=== PATIENT | female | born 1970 | race Caucasian/White ===

== ENCOUNTER 2020-05-25 15:15 | Inpatient (IN) | payer MEDICAID, SELFPAY ==
[~2020-05-25] VITALS: Ht 154.9 cm; Wt 49.0 kg
[2020-05-25 15:30] VITALS: BP 136/89
[2020-05-25] MEDS ORDERED: ONDANSETRON 4 MG/2 ML VIAL IVP ONE (15:35)
[2020-05-25] MEDS ORDERED: MORPHINE SULFATE 4 MG/ML SYR IVP ONE (15:35)
[2020-05-25 15:57] LABS: BASOPHILS % (AUTO) 0.3 % (0.0-2.0); EOSINOPHILS % (AUTO) 0.2 % (0.0-4.0); HEMATOCRIT 42.2 % (36-48); HEMOGLOBIN 14.2 g/dL (12.0-16.0); LYMPHOCYTES # (AUTO) 0.6 K/uL (2.5-16.5); LYMPHOCYTES % (AUTO) 8.8 % (20.5-51.1); MEAN CORPUSCULAR HEMOGLOBIN 29 pg (27-31); MEAN CORPUSCULAR HGB CONC 34 g/dL (33-37); MEAN CORPUSCULAR VOLUME 85.8 fL (80-94); MONOCYTES # (AUTO) 0.5 K/uL (0.8-1.0); MONOCYTES % (AUTO) 7.7 % (1.7-9.3); NEUTROPHILS # (AUTO) 5.4 K/uL (1.8-7.7); PLATELET COUNT (AUTO) 228 K/uL (140-450); RED BLOOD CELL COUNT(AUTO) 4.91 MIL/uL (4.20-5.40); WHITE BLOOD COUNT (AUTO) 6.5 K/uL (4.8-10.8)
--- NOTE | 2020-05-25 16:28 | NUR ---
50YO F BIB FAMILY C/O LOWER ABD PAIN X2 WEEKS ACCOMPANIED WITH N/V, WEIGHT LOSS OF 8 LBS. DENIES DIARRHEA, FEVER. IN ED, VSS. STATES PAIN OF 9/10. WITH TENDERNESS TO LOWER QUADRANT. NORMOACTIVE BOWEL SOUNDS. PT CHANGED TO GOWN, POSITIONED IN BED WITH 2 SIDERAILS UP. ERMD MADE AWARE OF PT STATUS. HX DENIES NKA
[2020-05-25 16:30] LABS: ALBUMIN 3.7 g/dL (3.4-5.0); ANION GAP 14.9 (8-16); CARBON DIOXIDE 22.5 mmol/L (21-32); POTASSIUM 4.4 mmol/L (3.5-5.1); TOTAL BILIRUBIN 0.8 mg/dL (0.0-1.0)
[2020-05-25] MEDS ORDERED: PIPERACILLIN/TAZOBACTAM 3.375 GM in DEXTROSE 5% 50 ML IV ONE (17:05)
[2020-05-25] MEDS ORDERED: metroNIDAZOLE 500 MG/NS PREMIX 100 ML IV ONE (17:05)
[2020-05-25] MEDS ORDERED: PIPERACILLIN/TAZOBACTAM 3.375 GM VIAL IV ONE (17:19)
--- NOTE | 2020-05-25 17:48 | NUR ---
natalie swab done. walked to lab.
[2020-05-25 18:08] LABS: APPEARANCE,URINE CLEAR (CLEAR); BILIRUBIN,URINE NEGATIVE (NEGATIVE); BLOOD, URINE TRACE-I (NEGATIVE); COLOR,URINE YELLOW (YELLOW); LEUKOCYTE ESTERASE ,URINE NEGATIVE (NEGATIVE); NITRITE, URINE NEGATIVE (NEGATIVE); PH,URINE 5.5 (5.0-9.0); UGLUCOSE NEGATIVE (NEGATIVE)
[2020-05-25 18:21] LABS: WBC,URINE 0-5 /HPF (0-5)
--- NOTE | 2020-05-25 19:17 | NUR ---
GAVE REPORT TO LAUREN SERRANO. ALL CARE TRANSFERRED AT THIS TIME.
[2020-05-25] MEDS: DEXTROSE 5% 1,000 ML IV SCH (19:30)
--- NOTE | 2020-05-25 20:18 | NUR ---
Patient will be admitted to care of DR ROBERTS. Admited to [facility]. Will go to room 115. Belongings list completed. Report to LAUREN MIKE.
--- NOTE | 2020-05-25 20:30 | NUR ---
ADMITTED 50 Y/O FEMALE, FROM HOME, AAOX4, ON ROOM AIR, NO SOB, AMBULATORY, SKIN INTACT, V/S TAKEN, ORIENTED TO ROOM, SAFETY MEASURES IN PLACE, ISO PRECAUTION OBSERVED, CALL LIGHT WITHIN REACH.
[2020-05-25] MEDS ORDERED: guaiFENesin DM 200/20 MG-10 ML 10 ML UDC PO PRN (20:45)
[2020-05-25] MEDS ORDERED: ZOLPIDEM 5 MG TAB PO PRN (20:45)
[2020-05-25] MEDS ORDERED: POTASSIUM CHLORIDE 40 MEQ, LIDOCAINE MPF 1% 25 MG in NACL 0.9% 250 ML IV PRN (20:45)
[2020-05-25] MEDS ORDERED: DOCUSATE SODIUM 100 MG GELCAP PO PRN (20:45)
[2020-05-25] MEDS ORDERED: ONDANSETRON 4 MG/2 ML VIAL IM/IVP PRN (20:45)
[2020-05-25] MEDS ORDERED: KETOROLAC 30 MG/ML VIAL IM SCH (20:50)
[2020-05-25] MEDS ORDERED: methylPREDNISolone SS 125 MG/2 ML VIAL IVP SCH (20:55)
[2020-05-25 21:11] LABS: PROTHROMBIN TIME 10.4 secs (10.8-13.4)
[2020-05-25 21:27] LABS: CHOL/HDL RATIO 2.1 (1-4.5); FREE T4 (FREE THYROXINE) 1.28 ng/dL (0.76-1.46); MAGNESIUM 2.2 mg/dL (1.8-2.4); PHOSPHORUS 3.3 mg/dL (2.5-4.9); THYROID STIMULATING HORMONE 2.55 uIU/mL (0.34-3.74)
[2020-05-25] MEDS: MORPHINE SULFATE 2 MG/ML SYR IVP PRN (21:30)
[2020-05-25 21:48] LABS: BARBITURATE, URINE NEGATIVE ng/ml (NEG <=200); BENZODIAZEPINE, URINE NEGATIVE ng/mL (NEG <=200); CANNABINOID, URINE NEGATIVE ng/mL (NEG <=50); COCAINE, URINE NEGATIVE ng/mL (NEG <=300); OPIATE, URINE NEGATIVE ng/mL (NEG <=2000); PHENCYCLIDINE SCREEN,URINE NEGATIVE ng/mL (NEG <=25)
--- NOTE | 2020-05-26 | NUR ---
ASLEEP, RESPIRATION EVEN AND UNLABORED, NO SOB, O2 SAT 97%, CALL LIGHT WITHIN REACH.
--- NOTE | 2020-05-26 02:00 | NUR ---
PT ASLEEP, RESPIRATION EVEN AND UNLABORED, CALL LIGHT WITHIN REACH.
[2020-05-26 04:00] VITALS: BP 112/76
[2020-05-26] MEDS ORDERED: PIPERACILLIN/TAZOBACTAM 3.375 GM VIAL IV ONE (04:26)
[2020-05-26] MEDS: PIPERACILLIN/TAZOBACTAM 3.375 GM in DEXTROSE 5% 50 ML IV SCH ×3 (04:38→20:56)
--- NOTE | 2020-05-26 04:40 | NUR ---
ZOSYN IV GIVEN ORDERED, NO A/R NOTED, PT WALK TO THE RESTROOM, SBA, STABLE, CALL LIGHT WITHIN REACH.
[2020-05-26] MEDS: DEXTROSE 5% 1,000 ML IV SCH ×2 (06:25→18:56)
[2020-05-26 06:46] LABS: BASOPHILS % (AUTO) 0.5 % (0.0-2.0); EOSINOPHILS # (AUTO) 0.1 K/uL (0-0.4); EOSINOPHILS % (AUTO) 0.9 % (0.0-4.0); HEMATOCRIT 39.5 % (36-48); HEMOGLOBIN 13.3 g/dL (12.0-16.0); LYMPHOCYTES # (AUTO) 0.6 K/uL (2.5-16.5); LYMPHOCYTES % (AUTO) 10.4 % (20.5-51.1); MEAN CORPUSCULAR HEMOGLOBIN 29 pg (27-31); MEAN CORPUSCULAR HGB CONC 34 g/dL (33-37); MEAN CORPUSCULAR VOLUME 86.4 fL (80-94); MONOCYTES # (AUTO) 0.6 K/uL (0.8-1.0); MONOCYTES % (AUTO) 10.5 % (1.7-9.3); NEUTROPHILS # (AUTO) 4.8 K/uL (1.8-7.7); NEUTROPHILS % (AUTO) 77.7 % (42.2-75.2); PLATELET COUNT (AUTO) 223 K/uL (140-450); RED BLOOD CELL COUNT(AUTO) 4.57 MIL/uL (4.20-5.40); RED CELL DISTRIBUTION WIDTH 13.2 % (11.6-13.7); WHITE BLOOD COUNT (AUTO) 6.1 K/uL (4.8-10.8)
--- NOTE | 2020-05-26 06:46 | NUR ---
CHECKED PT, NO DISTRESS, NO SOB, CALL LIGHT WITHIN REACH.
--- NOTE | 2020-05-26 07:30 | NUR ---
PT STABLE, NO DISTRESS, NO ACUTE CHANGES THE WHOLE SHIFT, ENDORSED TO AM SHIFT RN FOR CONTINUITY OF CARE.
[2020-05-26] MEDS: MORPHINE SULFATE 2 MG/ML SYR IVP PRN ×2 (07:39→15:46)
[2020-05-26 08:01] LABS: ANION GAP 12.8 (8-16); CARBON DIOXIDE 24.2 mmol/L (21-32); CREATININE 0.9 mg/dL (0.6-1.3)
[2020-05-26] MEDS: methylPREDNISolone SS 40 MG/ML VIAL IVP SCH ×2 (08:11→21:08)
[2020-05-26] MEDS: PANTOPRAZOLE 40 MG INJ VIAL IVP SCH (08:11)
--- NOTE | 2020-05-26 08:57 | NUR ---
Patient awake, alert and oriented. Currently on room air, complains of excruciating abdominal pain. Describes pain as lower abdomen and radiates with movement to all quadrants. Given Prn Morphine and to continue to observe patient. Currently NPO and awaiting Physician for possible surgical procedure.
[2020-05-26 09:01] VITALS: BP 120/80
--- NOTE | 2020-05-26 09:07 | NUR ---
PATIENT HAS BEEN SCREENED AND CATEGORIZED HIGH NUTRITION RISK. PATIENT WILL BE SEEN WITHIN 1-2 DAYS OF ADMISSION. 05/26/20-05/27/[address]
[2020-05-26] MEDS ORDERED: bisacodyL 10 MG SUPP RC PRN (09:35)
--- NOTE | 2020-05-26 11:53 | NUR ---
SOCIAL WORK NOTE: MARIA ELENA WAS UNABLE TO MEET PATIENT AT BEDSIDE. MARIA ELENA CONTACTED PATIENT'S TO COMPLETE ASSESSMENT, GABY JACINTO [phone]. MARIA ELENA LEFT . MARIA ELENA WILL FOLLOW UP. Addendum: 05/29/20 at 1114 by Chiov Salmon SS MARIA ELENA CONTACTED GABY JACINTO USING REAMER HAND CLAU [id number]. MARIA ELENA LEFT TO COMPLETE ASSESSMENT.
[2020-05-26] MEDS ORDERED: MAGNESIUM CITRATE 300 ML BTL PO SCH (14:30)
--- NOTE | 2020-05-26 15:50 | NUR ---
Administered Magnesium Citrate and patient unable to tolerate as she cried out having severe abdominal pain. Patient given a dose of Morphine and will continue to observe.
[2020-05-26 16:00] VITALS: BP 129/84
--- NOTE | 2020-05-26 16:25 | NUR ---
05/26/20 RD INITIAL ASSESSMENT COMPLETED PLEASE REFER TO NUTRITION ASSESSMENT UNDER CARE ACTIVITY FOR ESTIMATED NUTRITIONAL NEEDS. 1. CONTINUE FULL LIQUID DIET PER GI 2. CONSIDER ENSURE CLEAR TID 3. GRADUALLY ADVANCE DIET TOLERATED 4. RD TO FOLLOW-UP 2-3 DAYS, HIGH RISK MOJGAN DUNLAP, RD
[2020-05-26] MEDS: ERYTHROMYCIN 250 MG TABEC PO SCH (18:55)
[2020-05-26] MEDS: SENNA 8.6 MG TAB PO SCH (18:56)
--- NOTE | 2020-05-26 19:00 | NUR ---
RECEIVED PATIENT FROM AM SHIFT NURSE FOR CONTINUITY OF CARE. AAOX4. RESPIRATIONS EVEN, UNLABORED. NO S/S RESPIRATORY DISTRESS. SKIN WARM, DRY. IV SITE TO LEFT AC 20G PATENT/INTACT, INFUSING FLUIDS WELL. PATIENT C/O ACHING ABDOMINAL PAIN DUE TO NEEDING TO DEFECATE. ABDOMEN TENDER, SLIGHTLY ROUNDED. BOWEL SOUNDS HYPERACTIVE X4 QUADRANTS. PATIENT IS CONTINENT OF B/B. PLAN OF CARE DISCUSSED. ISOLATION PRECAUTIONS OBSERVED.
[2020-05-26 20:00] VITALS: BP 127/88
--- NOTE | 2020-05-26 21:00 | NUR ---
DUE MEDS GIVEN. PATIENT RESTING IN BED. CALL LIGHT WITHIN REACH.
[2020-05-26] MEDS: POLYETHYLENE GLYCOL 17 GM/PKT PO SCH (21:07)
--- NOTE | 2020-05-26 23:00 | NUR ---
SPOKE TO SON ZECHARIAH TO GIVE HIM AN UPDATE ON PATIENT'S PLAN OF CARE.
[2020-05-27] MEDS: ACETAMINOPHEN 325 MG TAB PO PRN (00:04)
--- NOTE | 2020-05-27 01:00 | NUR ---
PATIENT AMBULATING SELF TO BATHROOM. STATED SHE IS HAVING VERY SMALL BOWEL MOVEMENTS AT THIS TIME.
[2020-05-27 04:00] VITALS: BP 136/85
[2020-05-27] MEDS: PIPERACILLIN/TAZOBACTAM 3.375 GM in DEXTROSE 5% 50 ML IV SCH ×3 (05:06→20:57)
[2020-05-27] MEDS: DEXTROSE 5% 1,000 ML IV SCH (05:58)
--- NOTE | 2020-05-27 07:20 | NUR ---
RECEIVED ENDORSEMENT FROM DRONE PILOT, AWAKE,ALERT, ORIENTEDX4, BREATHING SPONTANEOUSLY AT ROOM AIR, NOT IN DISTRESS NOTED. WITH ONGOING IV FLUID WITH DEXTROSE 5 % AT 80ML/HOUR INFUSING AT LEFT AC G 20 IV CANNULA NOTED. SAFETY MEASURES IN PLACE AND CONTINUE MONITOR.
[2020-05-27 08:00] VITALS: BP 131/98
[2020-05-27 08:23] LABS: BASOPHILS % (AUTO) 0.2 % (0.0-2.0); EOSINOPHILS % (AUTO) 0.1 % (0.0-4.0); HEMATOCRIT 45.8 % (36-48); HEMOGLOBIN 15.5 g/dL (12.0-16.0); LYMPHOCYTES % (AUTO) 9.4 % (20.5-51.1); MEAN CORPUSCULAR HEMOGLOBIN 29 pg (27-31); MEAN CORPUSCULAR HGB CONC 34 g/dL (33-37); MEAN CORPUSCULAR VOLUME 86.9 fL (80-94); MONOCYTES % (AUTO) 9.5 % (1.7-9.3); NEUTROPHILS # (AUTO) 8.4 K/uL (1.8-7.7); NEUTROPHILS % (AUTO) 80.8 % (42.2-75.2); PLATELET COUNT (AUTO) 309 K/uL (140-450); RED BLOOD CELL COUNT(AUTO) 5.27 MIL/uL (4.20-5.40); RED CELL DISTRIBUTION WIDTH 13.1 % (11.6-13.7); WHITE BLOOD COUNT (AUTO) 10.4 K/uL (4.8-10.8)
[2020-05-27] MEDS: PANTOPRAZOLE 40 MG INJ VIAL IVP SCH (08:45)
[2020-05-27] MEDS: methylPREDNISolone SS 40 MG/ML VIAL IVP SCH ×2 (08:46→20:57)
[2020-05-27] MEDS: POLYETHYLENE GLYCOL 17 GM/PKT PO SCH ×2 (08:46→20:57)
[2020-05-27] MEDS: SENNA 8.6 MG TAB PO SCH ×3 (08:46→17:17)
[2020-05-27] MEDS: ERYTHROMYCIN 250 MG TABEC PO SCH ×3 (08:47→17:17)
--- NOTE | 2020-05-27 09:02 | NUR ---
FULLY AWAKE AND ALERT, DUE MEDICATION GIVEN
[2020-05-27 09:27] LABS: ANION GAP 15.4 (8-16); CARBON DIOXIDE 26.5 mmol/L (21-32); CREATININE 1.1 mg/dL (0.6-1.3); POTASSIUM 3.9 mmol/L (3.5-5.1)
[2020-05-27 11:31] LABS: T4 (THYROXINE) 12.9 ug/dL (4.5 - 12.0)
[2020-05-27 12:00] VITALS: BP 122/86
--- NOTE | 2020-05-27 12:25 | NUR ---
DR SAWYER MADE ROUNDS, ORDERED TO GIVE FLEET ENEMA.
--- NOTE | 2020-05-27 12:45 | NUR ---
COMPLAINED OF ABDOMINAL PAIN. 10/12 MORPHINE 2MG IV ORDERED PRN GIVEN, DUE MEDICATION AND FLEET ENEMA PER RECTAL GIVEN, HEALTH TEACHING PROVIDED
[2020-05-27] MEDS: POTASSIUM CHL 20 MEQ/D5-1/2NS 1,000 ML IV SCH (15:02)
--- NOTE | 2020-05-27 15:05 | NUR ---
ABOVE IV FLUID DISCONTINUED, D5 0.45% NS 1L + 20MEQ POTASSIUM CHLORIDE AT 40ML/HOUR STARTED
--- NOTE | 2020-05-27 15:44 | NUR ---
TO CT DEPART PER WHEELCHAIR IN STABLE CONDITION, FOR CT ABDOMEN/PELVIS WITH RECTAL CONTRAST.
[2020-05-27 16:00] VITALS: BP 108/86
--- NOTE | 2020-05-27 16:05 | NUR ---
BACK TO ROOM , CT ABDOMEN/PELVIS DONE
--- NOTE | 2020-05-27 17:23 | NUR ---
FULLY AWAKE AND ALERT, DUE MEDICATION GIVEN
[2020-05-27] MEDS: HYDROcodone/APAP 7.5/325 MG 1 TAB PO PRN (18:39)
--- NOTE | 2020-05-27 18:45 | NUR ---
COMPLAINED OF LOWER BACK PAIN 5/10, NORCO 1 TAB ORDERED PRN GIVEN
--- NOTE | 2020-05-27 19:25 | NUR ---
RECEIVED PATIENT FROM AM SHIFT NURSE FOR CONTINUITY OF CARE. AAOX4. RESPIRATIONS EVEN, UNLABORED. NO S/S RESPIRATORY DISTRESS. SKIN WARM, DRY. IV SITE TO LEFT AC 20G PATENT/INTACT, INFUSING FLUIDS WELL. ABDOMEN TENDER, SLIGHTLY ROUNDED. BOWEL SOUNDS HYPERACTIVE X4 QUADRANTS. PATIENT IS CONTINENT OF B/B. PLAN OF CARE DISCUSSED. ISOLATION PRECAUTIONS OBSERVED. CALL LIGHT WITHIN REACH.
--- NOTE | 2020-05-27 19:25 | NUR ---
ENDORSED TO CREDIT CARD INTERVIEWER IN STABLE CONDITION FOR CONTINUITY OF CARE
[2020-05-27 20:00] VITALS: BP 122/86
--- NOTE | 2020-05-27 21:00 | NUR ---
DUE MEDS GIVEN. PATIENT RESTING COMFORTABLY IN BED. NO C/O PAIN. NO S/S ACUTE DISTRESS. CALL LIGHT WITHIN REACH. ISOLATION PRECAUTIONS OBSERVED.
--- NOTE | 2020-05-27 23:30 | NUR ---
PATIENT IS RESTING COMFORTABLY IN BED. ALL NEEDS ANTICIPATED AND MET. NO S/S ACUTE DISTRESS. CALL LIGHT WITHIN REACH. ISOLATION PRECAUTIONS OBSERVED.
[2020-05-28] VITALS: BP 113/62
--- NOTE | 2020-05-28 01:00 | NUR ---
PATIENT IS ASLEEP. NO S/S ACUTE DISTRESS. CALL LIGHT WITHIN REACH. ISOLATION PRECAUTIONS OBSERVED.
--- NOTE | 2020-05-28 03:00 | NUR ---
MADE ROUNDS. PATIENT IS ASLEEP. NO S/S ACUTE DISTRESS. CALL LIGHT WITHIN REACH. ISOLATION PRECAUTIONS OBSERVED.
[2020-05-28 04:00] VITALS: BP 131/88
[2020-05-28] MEDS: PIPERACILLIN/TAZOBACTAM 3.375 GM in DEXTROSE 5% 50 ML IV SCH ×3 (04:03→21:00)
--- NOTE | 2020-05-28 05:00 | NUR ---
ALL NEEDS ANTICIPATED AND MET. DUE MEDS GIVEN. NO S/S ACUTE DISTRESS. CALL LIGHT WITHIN REACH. ISOLATION PRECAUTIONS OBSERVED.
--- NOTE | 2020-05-28 07:20 | NUR ---
RECEIVED PT FROM MOLDING PLASTERER NURSE, PT IS AWAKE IN BED, ON ROOM AIR, IV TO LAC 20G RUNNING D5NS1/2NS 20MEQ KCL AT 40ML/HR, CONTINENT, SAFETY AND FALL PRECAUTIONS IN PLACE, WILL CONTINUE TO MONITOR.
--- NOTE | 2020-05-28 07:38 | NUR ---
ENDORSED TO AM SHIFT NURSE FOR CONTINUITY OF CARE.
[2020-05-28 08:00] VITALS: BP 131/90
[2020-05-28] MEDS ORDERED: ENOXAPARIN 40 MG/0.4 ML SYR SUBQ SCH (09:00)
[2020-05-28 09:40] LABS: HEMATOCRIT 40.9 % (36-48); LYMPHOCYTES # (AUTO) 0.8 K/uL (2.5-16.5); LYMPHOCYTES % (AUTO) 8.1 % (20.5-51.1); MEAN CORPUSCULAR HEMOGLOBIN 29 pg (27-31); MEAN CORPUSCULAR HGB CONC 34 g/dL (33-37); MEAN CORPUSCULAR VOLUME 85.2 fL (80-94); MONOCYTES # (AUTO) 0.8 K/uL (0.8-1.0); MONOCYTES % (AUTO) 8.6 % (1.7-9.3); NEUTROPHILS # (AUTO) 7.8 K/uL (1.8-7.7); NEUTROPHILS % (AUTO) 83.3 % (42.2-75.2); PLATELET COUNT (AUTO) 267 K/uL (140-450); RED BLOOD CELL COUNT(AUTO) 4.79 MIL/uL (4.20-5.40); RED CELL DISTRIBUTION WIDTH 13.1 % (11.6-13.7); WHITE BLOOD COUNT (AUTO) 9.4 K/uL (4.8-10.8)
[2020-05-28 09:52] LABS: ANION GAP 15.1 (8-16); CARBON DIOXIDE 25.8 mmol/L (21-32); CREATININE 0.9 mg/dL (0.6-1.3); POTASSIUM 3.9 mmol/L (3.5-5.1)
[2020-05-28] MEDS: methylPREDNISolone SS 40 MG/ML VIAL IVP SCH ×2 (10:10→21:00)
[2020-05-28] MEDS: POLYETHYLENE GLYCOL 17 GM/PKT PO SCH ×3 (10:11→17:53)
[2020-05-28] MEDS: SENNA 8.6 MG TAB PO SCH ×3 (10:11→17:53)
[2020-05-28] MEDS: ERYTHROMYCIN 250 MG TABEC PO SCH ×3 (10:14→17:53)
--- NOTE | 2020-05-28 10:26 | NUR ---
SCHEDULED MEDICATIONS ADMINISTERED, PT EDUCATIONS PROVIDED, PT VERBALIZED UNDERSTANDING, PT STATES SHE WANTS TO CHECK TO MAKE SURE HER INSURANCE WILL COVER HER STAY, WILL CONTACT LAPPING MACHINE TENDER FOR REFERRAL, WILL CONTINUE TO MONITOR.
[2020-05-28] MEDS: bisacodyL 10 MG SUPP RC SCH ×2 (13:45→21:00)
[2020-05-28] MEDS: POTASSIUM CHL 20 MEQ/D5-1/2NS 1,000 ML IV SCH (13:51)
--- NOTE | 2020-05-28 15:10 | NUR ---
SCHEDULED MEDICATION ADMINISTERED, PT EDUCATION PROVIDED, PT VERBALIZED UNDERSTANDING, WILL CONTINUE TO MONITOR.
[2020-05-28 16:00] VITALS: BP 129/85
[2020-05-28] MEDS ORDERED: MAGNESIUM CITRATE 300 ML BTL PO SCH (16:00)
--- NOTE | 2020-05-28 18:05 | NUR ---
SCHEDULED MEDICATIONS ADMINISTERED. PT REFUSED CITROMA, SHE STATED IT GAVE HER 10/10 ABDOMINAL PAIN. EDUCATION PROVIDED, PT VERBALIZED UNDERSTANDING WILL CONTINUE TO MONITOR.
[2020-05-28] MEDS ORDERED: HYDROmorphone 1 MG/ML AMP IVP PRN (18:40)
--- NOTE | 2020-05-28 18:41 | NUR ---
CONTACTED DR SAWYER FOR PT WHO STATES SHE HAS 10/10 PAIN, FEELS LIKE STOMACH WILL BURST, MD ORDER TO ADMINISTER DIALUDID 1 MG IV PUSH NOW ONCE, AND BEGINE ABDOMINAL SERIES TONIGHT INSTEAD OF TMRW MORNING.
[2020-05-28] MEDS ORDERED: HYDROmorphone 1 MG/ML AMP ONE (18:47)
--- NOTE | 2020-05-28 18:47 | NUR ---
COLLABORATED WITH POWER GENERATION TECHNICIAN TO INPUT AND ADMINISTER PAIN MEDICATION TO PT AND CHANGED ABD SERIES XRAYS TO TODAY PER MD ORDER. WILL CONTINUE TO MONITOR.
--- NOTE | 2020-05-28 19:05 | NUR ---
ENDORSED PT TO RADIOLOGY EQUIPMENT SERVICER NURSE FOR CONTINUITY OF CARE.
[2020-05-28 20:00] VITALS: BP 127/89
[2020-05-28] MEDS ORDERED: KETOROLAC 15 MG/ML VIAL ONE (21:30)
--- NOTE | 2020-05-28 21:30 | NUR ---
DUE MEDS GIVEN. PATIENT IS STILL IN A LOT OF PAIN. MEDICATED ORDERED. CALL LIGHT WITHIN REACH. SAFETY PRECAUTIONS IN PLACE. ISOLATION PRECAUTIONS OBSERVED.
[2020-05-28] MEDS: KETOROLAC 15 MG/ML VIAL IVP PRN (21:31)
--- NOTE | 2020-05-28 23:00 | NUR ---
PATIENT IS ASLEEP. NO S/S ACUTE DISTRESS. CALL LIGHT WITHIN REACH. SAFETY PRECAUTIONS IN PLACE. ISOLATION PRECAUTIONS OBSERVED.
[2020-05-29] VITALS: BP 124/88
--- NOTE | 2020-05-29 01:00 | NUR ---
MADE ROUNDS. PATIENT IS ASLEEP. CALL LIGHT WITHIN REACH. SAFETY PRECAUTIONS IN PLACE. ISOLATION PRECAUTIONS OBSERVED.
--- NOTE | 2020-05-29 03:47 | NUR ---
PATIENT IS ASLEEP. NO S/S ACUTE DISTRESS. CALL LIGHT WITHIN REACH. SAFETY PRECAUTIONS IN PLACE. ISOLATION PRECAUTIONS OBSERVED.
[2020-05-29 04:00] VITALS: BP 115/64
[2020-05-29] MEDS: KETOROLAC 15 MG/ML VIAL IVP PRN (04:40)
[2020-05-29] MEDS: PIPERACILLIN/TAZOBACTAM 3.375 GM in DEXTROSE 5% 50 ML IV SCH (04:57)
--- NOTE | 2020-05-29 05:29 | NUR ---
PATIENT WAS MEDICATED FOR ABDOMINAL PAIN WITH GOOD EFFECT. AWAKE AND RESTING IN BED. CALL LIGHT WITHIN REACH. ISOLATION PRECAUTIONS OBSERVED.
[2020-05-29] MEDS: POTASSIUM CHL 20 MEQ/D5-1/2NS 1,000 ML IV SCH (06:31)
[2020-05-29 07:33] LABS: ANION GAP 11.5 (8-16); CARBON DIOXIDE 28.7 mmol/L (21-32); CREATININE 0.9 mg/dL (0.6-1.3); MAGNESIUM 2.3 mg/dL (1.8-2.4); PHOSPHORUS 5.5 mg/dL (2.5-4.9); POTASSIUM 4.2 mmol/L (3.5-5.1)
[2020-05-29 07:37] LABS: BASOPHILS % (AUTO) 0.2 % (0.0-2.0); HEMATOCRIT 38.6 % (36-48); HEMOGLOBIN 12.9 g/dL (12.0-16.0); LYMPHOCYTES # (AUTO) 0.5 K/uL (2.5-16.5); LYMPHOCYTES % (AUTO) 5.4 % (20.5-51.1); MEAN CORPUSCULAR HEMOGLOBIN 29 pg (27-31); MEAN CORPUSCULAR HGB CONC 34 g/dL (33-37); MEAN CORPUSCULAR VOLUME 85.9 fL (80-94); MONOCYTES # (AUTO) 0.7 K/uL (0.8-1.0); MONOCYTES % (AUTO) 8.6 % (1.7-9.3); NEUTROPHILS # (AUTO) 7.3 K/uL (1.8-7.7); NEUTROPHILS % (AUTO) 85.8 % (42.2-75.2); PLATELET COUNT (AUTO) 260 K/uL (140-450); RED CELL DISTRIBUTION WIDTH 13.4 % (11.6-13.7); WHITE BLOOD COUNT (AUTO) 8.5 K/uL (4.8-10.8)
--- NOTE | 2020-05-29 07:40 | NUR ---
RECEIVED REPORT FROM NIGHTSHIFT RN. PATIENT RESTING COMFORTABLY IN BED, ISOLATION PRECAUTIONS MAINTAINED. WILL CONTINUE TO MONITOR.
[2020-05-29] MEDS ORDERED: NEOSTIGMINE 1:1000 10 MG/10 ML VIAL IV ONE (08:00)
[2020-05-29 08:30] VITALS: BP 148/90
[2020-05-29] MEDS: methylPREDNISolone SS 40 MG/ML VIAL IVP SCH (09:34)
[2020-05-29] MEDS: bisacodyL 10 MG SUPP RC SCH (09:35)
[2020-05-29] MEDS: SENNA 8.6 MG TAB PO SCH (09:35)
[2020-05-29] MEDS: ERYTHROMYCIN 250 MG TABEC PO SCH (09:36)
[2020-05-29] MEDS ORDERED: fentaNYL citrate 0.05 MG/ML VIAL ONE (09:58)
[2020-05-29] MEDS ORDERED: diphenhydrAMINE 50 MG/ML VIAL ONE (09:59)
[2020-05-29] MEDS ORDERED: MIDAZOLAM 5 MG/5 ML VIAL ONE (09:59)
[2020-05-29] MEDS ORDERED: TPN PER PHARMACY MC PRN (11:50)
[2020-05-29] MEDS ORDERED: fentaNYL citrate 0.05 MG/ML VIAL IVP ONE (12:00)
[2020-05-29] MEDS ORDERED: MIDAZOLAM 2 MG/2 ML VIAL IVP ONE (12:00)
--- NOTE | 2020-05-29 12:19 | NUR ---
EGD AND COLONOSCOPY PERFORMED AT BEDSIDE BY DR. SAWYER AND DR. MORENO. BIOPSY SAMPLES SENT BY GI LAB STAFF. PATIENT SLEEPING IN BED. VITAL MACHINE CONNECTED
[2020-05-29 12:33] VITALS: BP 125/92
[2020-05-29] MEDS: HYDROcodone/APAP 7.5/325 MG 1 TAB PO PRN ×2 (14:18→18:23)
[2020-05-29] MEDS: DEXT 5% /NACL 0.9% 1,000 ML IV SCH (15:21)
[2020-05-29 15:26] VITALS: BP 127/72
--- NOTE | 2020-05-29 15:26 | NUR ---
DC PLANNIN YRS OLD FEMALE PATIENT WAS ADMITTED FROM HOME WITH A DX OF TOXIC MEGACOLON AND ABD PAIN. PT HAS NO MEDICAL HX. RAPID COVID TEST POSITIVE AND PCR IS PENDING. STARTED COVID TREATMENT. DR SAWYER PERFORMED EGD AND COLONOSCOPY, CONSIDER TPN AND RECOMMENDED SURGICAL AND ONCOLOGY INTERVENTION. DC PLAN PER PT RESPONSE TO THE TREATMENT. CM TO FOLLOW Addendum: 05/31/20 at 1407 by Bridgett Arriaga CM DC NOVELTY BALLOON ASSEMBLER AND PACKER: TRIED CALLING DR. JACOBSON'S OFFICE MULTIPLE TIMES TO SCHEDULE PATIENT AN APPOINTMENT NO ANSWER [phone] Addendum: 06/01/20 at 0955 by Bridgett Arriaga CM DC NOVELTY BALLOON ASSEMBLER AND PACKER: SCHEDULED PATIENT A FOLLOW UP APPOINTMENT WITH BENNETT WALKER [phone]. APPT IS ON Jun AT 10:[address] [place] [id number] Addendum: 06/01/20 at 1527 by Bridgett Arriaga CM DC NOVELTY BALLOON ASSEMBLER AND PACKER: PLACED APPT REMINDER IN PATIENTS CHART NOTIFIED LAUREN STEEL. Addendum: 06/02/20 at 1223 by Urvashi Salazar RN DC PLANNING: CALLED [facility] [phone] SPOKE WITH EDENILSON REGARDING OSTOMY SUPPLY PER EDENILSON TO FAX THE FACE SHEET AND ORDERED FAXED TO [phone] CM TO FOLLOW. Addendum: 06/02/20 at 1400 by Bridgett Arriaga CM NANDA LOAIZA: SCHEDULED PATIENT A FOLLOW UP APPT WITH DR. STEVIE MORENO ON Friday AT 2:45 PM Addendum: 06/02/20 at 1405 by Bridgett Arriaga CM NANDA LOAIZA: CLARIFICATION PATIENTS ONCOLOGIST FOLLOW UP WITH DR. CABALLERO IS SCHEDULED ON June AT 10:00 AM Addendum: 06/02/20 at 1416 by Bridgett Arriaga CM DC NOVELTY BALLOON ASSEMBLER AND PACKER: PLACED APPT REMINDER FOR FOLLOW UP WITH DR. MORENO IN PATIENTS CHART. Addendum: 06/02/20 at 1631 by Urvashi Salazar RN DC PLANNING: RECEIVED A CALL FROM [employer] [facility] SPOKE WITH DAVID REQUESTING THE REF NUMBER PROVIDED THE REF NUMBER FOR COLOSTOMY SALAZAR [id number] PER DAVID WILL PROCESS IT AND WILL BE DELIVERED AT HOME WITH IN 3-5 DAYS. RN TAUGHT PATIENT FOR COLOSTOMY CARE PT VERBALIZED UNDERSTANDING. EXTRA SUPPLIES GIVEN. TRIED [facility], NO ANSWER LEFT A MESSAGE AND FAXED TO [facility]. PT STABLE FOR DISCHARGE.
--- NOTE | 2020-05-29 15:48 | NUR ---
05/29/20 RD FOLLOW UP COMPLETED PLEASE REFER TO NUTRITION ASSESSMENT UNDER CARE ACTIVITY FOR ESTIMATED NUTRITIONAL NEEDS. 1. CONTINUE NPO PER MD 2. CONSIDER TPN TO PROVIDE NUTRITIONAL NEEDS 3. RD TO FOLLOW-UP 2-3 DAYS, HIGH RISK MOJGAN DUNLAP, RD
--- NOTE | 2020-05-29 16:07 | NUR ---
ROUNDS MADE. PATIENT RESTING IN BED, REPORTS THE NORCO REALLY HELPED HER PAIN AND HER PAIN IS 0/10. PICC LINE CONSENT DONE VIA TELEPHONE CENTRIFUGE SEPARATOR TENDER.
--- NOTE | 2020-05-29 19:18 | NUR ---
DR JOHNSON AT BEDSIDE TO ASSESS PATIENTS CONDITION. EXPLAINED DIAGNOSIS TO PATIENT AND ANSWERED ALL QUESTIONS. ENDORSED REPORT TO NIGHTSHIFT RN FOR CONTINUITY OF CARE
--- NOTE | 2020-05-29 19:30 | NUR ---
RECEIVED PATIENT FROM AM SHIFT NURSE FOR CONTINUITY OF CARE. AAOX4. RESPIRATIONS EVEN, UNLABORED. NO S/S RESPIRATORY DISTRESS. SKIN WARM, DRY. IV SITE TO RIGHT FOREARM 20G PATENT/INTACT, INFUSING FLUIDS WELL. NO C/O PAIN. NO S/S ACUTE DISTRESS. ABDOMEN SLIGHTLY ROUNDED, TENDER. BOWEL SOUNDS HYPOACTIVE X4 QUADRANTS. PATIENT IS CONTINENT OF B/B. PLAN OF CARE DISCUSSED. ISOLATION PRECAUTIONS OBSERVED. CALL LIGHT WITHIN REACH.
[2020-05-29 20:00] VITALS: BP 139/97
--- NOTE | 2020-05-29 21:00 | NUR ---
DUE MEDS GIVEN. PATIENT RESTING WELL. CALLED AND LEFT A MESSAGE FOR [facility], PICC LINE NURSE, REGARDING ETA FOR INSERTION. AWAITING RESPONSE.
--- NOTE | 2020-05-29 23:00 | NUR ---
PATIENT RESTING COMFORTABLY IN BED. NO S/S ACUTE DISTRESS. ISOLATION PRECAUTIONS OBSERVED. SAFETY PRECAUTIONS IN PLACE. CALL LIGHT WITHIN REACH.
--- NOTE | 2020-05-30 01:00 | NUR ---
MADE ROUNDS. PATIENT IS ASLEEP. NO S/S ACUTE DISTRESS. ISOLATION PRECAUTIONS OBSERVED. CALL LIGHT WITHIN REACH.
--- NOTE | 2020-05-30 03:00 | NUR ---
PATIENT IS ASLEEP. NO S/S ACUTE DISTRESS. ISOLATION PRECAUTIONS OBSERVED. CALL LIGHT WITHIN REACH.
[2020-05-30] MEDS: DEXT 5% /NACL 0.9% 1,000 ML IV SCH ×2 (03:35→16:55)
[2020-05-30 04:00] VITALS: BP 110/67
--- NOTE | 2020-05-30 05:00 | NUR ---
ALL NEEDS ANTICIPATED AND MET. PATIENT IS RESTING COMFORTABLY IN BED. NO S/S ACUTE DISTRESS. ISOLATION PRECAUTIONS OBSERVED. CALL LIGHT WITHIN REACH.
--- NOTE | 2020-05-30 07:10 | NUR ---
CALLED PICC LINE NURSE AND TALKED W/ NURSE OVER THERE SHE TOOK PT NAME AND ROOM # AND TELE.# NURSE WILL CALL US.
--- NOTE | 2020-05-30 07:29 | NUR ---
ENDORSED PATIENT TO AM SHIFT NURSE FOR CONTINUITY OF CARE.
--- NOTE | 2020-05-30 07:29 | NUR ---
RECEIVED PATIENT FROM NIGHT NURSE. PATIENT AWAKE AND ALERT. SITTING BY BEDSIDE. RESP EVEN AND UNLABORED ON ROOM AIR. NO NOTED ACUTE DISTRESS. LFA 20G INFUSING D5NS 75ML/HR. LAC 18G SL. DROPLET PRECAUTION OBSERVED. PLAN OF CARE DISCUSSED, PATIENT VERBALIZED UNDERSTANDING. HOB ELEVATED. SAFETY MEASURES IN PLACE. CALL LIGHT WITHIN REACH. WILL CONTINUE TO MONITOR.
[2020-05-30 07:50] LABS: MAGNESIUM 1.8 mg/dL (1.8-2.4); PHOSPHORUS 3.3 mg/dL (2.5-4.9)
[2020-05-30 07:57] LABS: CREATININE 0.7 mg/dL (0.6-1.3)
[2020-05-30] MEDS: HYDROcodone/APAP 7.5/325 MG 1 TAB PO PRN (08:10)
--- NOTE | 2020-05-30 09:25 | NUR ---
PATIENT IN BED AWAKE AND ALERT. NORCO WAS GIVEN WITH EFFECTIVE RESULTS. PATIENT COMFORTABLE. ABLE TO MAKE NEEDS KNOWN. LFA 20G INFUSING D5NS 75ML/HR. LAC 18G SL. RESP EVEN AND UNLABORED ON ROOM AIR. PLAN OF CARE DISCUSSED, PATIENT VERBALIZED UNDERSTANDING. CALL LIGHT WITHIN REACH. WILL CONTINUE TO MONITOR.
[2020-05-30 09:50] LABS: BASOPHILS % (AUTO) 0.1 % (0.0-2.0); EOSINOPHILS % (AUTO) 0.5 % (0.0-4.0); HEMATOCRIT 40.7 % (36-48); HEMOGLOBIN 13.6 g/dL (12.0-16.0); LYMPHOCYTES # (AUTO) 0.7 K/uL (2.5-16.5); LYMPHOCYTES % (AUTO) 7.4 % (20.5-51.1); MEAN CORPUSCULAR HEMOGLOBIN 29 pg (27-31); MEAN CORPUSCULAR HGB CONC 34 g/dL (33-37); MEAN CORPUSCULAR VOLUME 85.8 fL (80-94); MONOCYTES # (AUTO) 0.9 K/uL (0.8-1.0); MONOCYTES % (AUTO) 9.5 % (1.7-9.3); NEUTROPHILS # (AUTO) 7.8 K/uL (1.8-7.7); NEUTROPHILS % (AUTO) 82.5 % (42.2-75.2); PLATELET COUNT (AUTO) 282 K/uL (140-450); RED BLOOD CELL COUNT(AUTO) 4.74 MIL/uL (4.20-5.40); RED CELL DISTRIBUTION WIDTH 13.3 % (11.6-13.7); WHITE BLOOD COUNT (AUTO) 9.5 K/uL (4.8-10.8)
[2020-05-30] MEDS ORDERED: INSULIN LISPRO SLIDING SCALE 100 UNITS/ML VIAL SUBQ PRN (10:15)
--- NOTE | 2020-05-30 11:25 | NUR ---
PICC INSERTED TO [facility] BY PICC NURSE. CHEST XRAY CONFIRMED PLACEMENT.
[2020-05-30] MEDS ORDERED: KETOROLAC 15 MG/ML VIAL IVP PRN (11:45)
--- NOTE | 2020-05-30 11:53 | NUR ---
PATIENT C/O SEVERE PAIN TO ABD. DR ROBERTS MADE AWARE AND RECEIVED ORDER FOR TORADOL 15MG IVP Q8H PRN FOR SEVERE PAIN. ORDER CARRIED OUT
[2020-05-30 12:00] VITALS: BP 125/84
[2020-05-30] MEDS: BLOOD GLUCOSE MONITORING 1 DEV DEV MC SCH ×3 (12:23→19:40)
--- NOTE | 2020-05-30 14:57 | NUR ---
PATIENT TO OR FOR PROCEDURE
[2020-05-30] MEDS ORDERED: MORPHINE SULFATE 4 MG/ML SYR ONE (16:00)
[2020-05-30] MEDS ORDERED: MIDAZOLAM 2 MG/2 ML VIAL ONE (16:00)
[2020-05-30] MEDS ORDERED: fentaNYL citrate 0.05 MG/ML VIAL ONE (16:00)
[2020-05-30] MEDS ORDERED: LIDOCAINE 1% 500 MG/50 ML VIAL ONE ×2 (16:17→18:27)
[2020-05-30] MEDS ORDERED: BUPIVACAINE-MPF 0.25% 30 ML VIAL INJ ONE ×2 (16:17→18:28)
[2020-05-30] MEDS: LACTATED RINGERS 1,000 ML IV SCH (17:00)
[2020-05-30] MEDS ORDERED: ONDANSETRON 4 MG/2 ML VIAL IVP PRN (17:00)
[2020-05-30] MEDS ORDERED: THROMBIN KIT 20 MU VIAL TP ONE (18:39)
[2020-05-30] MEDS ORDERED: HYDROmorphone PFS 2 MG/ML SYR ONE (19:19)
[2020-05-30] MEDS: HYDROmorphone 1 MG/ML AMP IVP PRN ×4 (19:20→19:50)
--- NOTE | 2020-05-30 19:30 | NUR ---
RECEIVED ENDORSEMENT FROM AM SHIFT RN. PLAN OF CARE DISCUSSED. PT IS IN THE OR AT THIS TIME.
[2020-05-30] MEDS: MEPERIDINE 25 MG/ML SYR IVP PRN ×2 (19:35→19:55)
--- NOTE | 2020-05-30 19:35 | NUR ---
PATIENT STILL IN THE OR. ENDORSED TO NIGHT NURSE.
[2020-05-30 20:00] VITALS: BP 117/86
--- NOTE | 2020-05-30 20:25 | NUR ---
PT IS BACK TO HER ROOM FROM O.R., PT IS SLEEPY, INFUSING LR, W/ VERTICAL INCISION FROM ABDOMEN, SCHWARZ CATH IN PLACE, COLOSTOMY / MEDIPORT PLACEMENT WAS DONE IN O.R. PT SPITS BLOOD, OR NURSE SAID THAT IS AWARE AND SAID THAT IT IS DUE TO TRAUMA FROM THE SURGERY, SAFETY MEASURES IN PLACE, CALL LIGHT WITHIN REACH.
[2020-05-30] MEDS: AMINO ACIDS IV SCH ×4 (20:46)
[2020-05-30] MEDS: [UNRECOGNIZED DRUG - OTHER] IV SCH ×4 (20:46)
[2020-05-30] MEDS: MULTIVITAMIN IV SCH ×4 (20:46)
[2020-05-30] MEDS: DEXTROSE IV SCH ×4 (20:46)
--- NOTE | 2020-05-30 21:00 | NUR ---
DR. MORENO CHECKED PT INSIDE THE ROOM AND PLACE A 1 L IV BAG ON PT'S LEFT CHEST, SAID TO KEEP IT THERE THE WHOLE NIGHT, ORDER NOTED, WILL CONTINUE TO MONITOR, CALL LIGHT WITHIN REACH.
--- NOTE | 2020-05-30 22:03 | NUR ---
CHECKED PT, AWAKE, ABLE TO TALK, SPIT NOTED W/ BLOOD, NO DISTRESS, KEPT COMFORTABLE, WILL CONTINUE TO MONITOR, CALL LIGHT WITHIN REACH.
--- NOTE | 2020-05-31 00:30 | NUR ---
INFORMED DR. MORENO RE: PATIENT SPITTING BLOOD 40ML TOTAL SINCE PT CAME BACK FROM SURGERY, SAID TO CONTINUE TO MONITOR.
[2020-05-31] MEDS: BLOOD GLUCOSE MONITORING 1 DEV DEV MC SCH ×4 (00:55→18:27)
--- NOTE | 2020-05-31 00:56 | NUR ---
BLOOD SUGAR CHECKED 132. NO DISTRESS, CALL LIGHT WITHIN REACH.
[2020-05-31] MEDS: LACTATED RINGERS 1,000 ML IV SCH ×3 (01:20→22:46)
--- NOTE | 2020-05-31 01:25 | NUR ---
IVF FINISHED, HANGED A NEW IVF, NO DISTRESS, NO SOB, KEPT COMFORTABLE, CALL LIGHT WITHIN REACH.
--- NOTE | 2020-05-31 02:58 | NUR ---
ASLEEP, RESPIRATION EVEN AND UNLABORED, CALL LIGHT WITHIN REACH.
[2020-05-31 04:00] VITALS: BP 116/77
--- NOTE | 2020-05-31 05:15 | NUR ---
BLOOD SUGAR 122, ON ROOM AIR, NO DISTRESS, CALL LIGHT WITHIN REACH.
[2020-05-31 06:45] LABS: ANION GAP 8.1 (8-16); CREATININE 0.6 mg/dL (0.6-1.3); POTASSIUM 4.1 mmol/L (3.5-5.1)
[2020-05-31 06:52] LABS: MAGNESIUM 1.6 mg/dL (1.8-2.4); PHOSPHORUS 2.9 mg/dL (2.5-4.9)
--- NOTE | 2020-05-31 07:30 | NUR ---
PT STABLE, NO DISTRESS, BEDSIDE ENDORSEMENT GIVEN TO AM SHIFT RN FOR CONTINUITY OF CARE.
--- NOTE | 2020-05-31 09:00 | NUR ---
RECEIVED CALL FROM NATASHA HASTINGS, STATED SHE WAS A FORMER EMPLOYER FOR PATIENT AND WANTED TO SPEAK ON PATIENT'S BEHALF. DID NOT DISCLOSE INFO OR LET HER KNOW PATIENT WAS IN OUR CARE. TOOK DOWN PHONE NUMBER AND ADVSD I WILL CALL HER BACK
[2020-05-31] MEDS: HYDROcodone/APAP 7.5/325 MG 1 TAB PO PRN ×3 (09:05→21:27)
--- NOTE | 2020-05-31 09:24 | NUR ---
ADMINISTERED PRN MEDS FOR 9/10 PAIN. PATIENT TOLERATED WELL. MEDICATION EDUCATION PROVIDED. PATIENT VERBALIZED UNDERSTANDING. SAFETY MEASURES IN PLACE. WILL CONT TO MONITOR.
--- NOTE | 2020-05-31 09:30 | NUR ---
ASKED PATIENT IF SHE KNEW NATASHA VAZQUEZ, DUE TO LANGUAGTE BARRIER PATIENT CALLED HER NEPHEW JORGITO TO VERIFY. HER NEPHEW STATED SHE DID NOT KNOW THIS PERSON AND DID NOT GIVE CONSENT TO DISCUSS HOSPITALIZATION
[2020-05-31 12:00] VITALS: BP 121/76
--- NOTE | 2020-05-31 14:00 | NUR ---
ADMINISTERED PRN PAIN MED FOR 6/10 ABD PAIN. PATIENT TOLERATED MEDICATION WELL. SAFETY MEASURES IN PLACE. WILL CONT TO MONITOR.
--- NOTE | 2020-05-31 14:45 | NUR ---
CHARGE NURSE STATED HOSPITAL ADMIN REC'D CALL FROM LILLIAN SÁNCHEZ WANTING TO DISCUSS PATIENT W/ STAFF, STATED SHE IS SOFTWARE CONTROLS ENGINEER W/ [facility] AND WANTED TO COME TO THE HOSPITAL TO SPEAK ON PATIENT BEHALF REGARDING TREATMENT. THERE IS A DISCREPENCY W/ THIS PERSON'S ID. WILL USE METAL ROASTER PHONE FOR VERBAL AUTHORIZATION FROM PATIENT.
--- NOTE | 2020-05-31 15:00 | NUR ---
DISCUSSED W/ PATIENT ABOUT LILLIAN SÁNCHEZ, PATIENT VERIFIED SHE KNOWS THIS PERSON, STATED SHE IS HER GOOD FRIEND. PATIENT VERIFIED SHE HAS LILLIAN'S NUMBER IN HER CELL PHONE AND MATCHES THE NUMBER THAT WAS GIVEN TO US. USED CAR REPAIR SUPERVISOR PHONE TO FOR VERIFICATION W/ SATURATOR OPERATOR ID [id number]. PATIENT STATED THAT ALTHOUGH LILLIAN SÁNCHEZ IS HER FRIEND SHE DOES NOT GIVE CONSENT TO DISCUSS HOSPITALIZATION W/ HER. STATED SHE IS JUST VERY WORRIED ABOUT OUTSIDE RESOURCES THAT CAN BE AVAILABLE TO HER FINANCIAL NEEDS ONCE SHE IS DISCHARGED. ADVSD I WILL HAVE CASE MANAGEMENT COME SEE HER TO DISCUSS OPTIONS AND SHE CAN UPDATE HER FRIEND PERSONALLY. CASE MANAGEMENT NOTIFIED OF PATIENT'S CONCERNS.
--- NOTE | 2020-05-31 15:40 | NUR ---
05/31/20 RD FOLLOW UP COMPLETED PLEASE REFER TO NUTRITION ASSESSMENT UNDER CARE ACTIVITY FOR ESTIMATED NUTRITIONAL NEEDS. 1. CONTINUE CLEAR LIQUIDS WITH ENSURE BID 2. CONT. TPN PER PHARMACY ORDER D10%, AA 4.25% LIPIDS 20% 250 ML @ 50 ML/HR -PROVIDES 1,112 KCAL AND 51 GM OF PROTEIN, MEETING 77% OF KCAL NEEDS AND 100% OF PROTEIN NEEDS. 3. RD TO FOLLOW-UP 2-3 DAYS, HIGH RISK MOJGAN DUNLAP RD
[2020-05-31 20:00] VITALS: BP 132/87
[2020-05-31] MEDS: DEXTROSE IV SCH ×4 (20:00)
[2020-05-31] MEDS: MULTIVITAMIN IV SCH ×4 (20:00)
[2020-05-31] MEDS: [UNRECOGNIZED DRUG - OTHER] IV SCH ×4 (20:00)
[2020-05-31] MEDS: AMINO ACIDS IV SCH ×4 (20:00)
[2020-05-31] MEDS: AMITRIPTYLINE 10 MG TAB PO SCH ×2 (21:00→21:23)
--- NOTE | 2020-05-31 21:00 | NUR ---
DISCUSSED PLAN OF CARE WITH BROOKS MALONEY LVN. PT IS STABLE. WILL CONTINUE TO MONITOR.
[2020-06-01] MEDS: LACTATED RINGERS 1,000 ML IV SCH ×2 (02:33→21:45)
[2020-06-01] MEDS: HYDROmorphone 1 MG/ML AMP IVP PRN (02:59)
--- NOTE | 2020-06-01 03:14 | NUR ---
PT STATED SHE HAD PAIN IN THE ABDOMEN AND BACK AT A SCALE OF 8/10. PT WAS GIVEN DILAUDID ORDERED FOR PAIN. PAIN IS ACHING IN CHARACTERISTIC. BP WAS 156/88 PRIOR TO ADMINISTRATION. WILL MONITOR PAIN.
[2020-06-01 04:00] VITALS: BP 124/84
[2020-06-01] MEDS: BLOOD GLUCOSE MONITORING 1 DEV DEV MC SCH ×4 (06:00→18:06)
[2020-06-01 07:21] LABS: BASOPHILS % (AUTO) 0.2 % (0.0-2.0); EOSINOPHILS # (AUTO) 0.1 K/uL (0-0.4); EOSINOPHILS % (AUTO) 1.2 % (0.0-4.0); HEMATOCRIT 29.6 % (36-48); HEMOGLOBIN 9.8 g/dL (12.0-16.0); LYMPHOCYTES # (AUTO) 0.5 K/uL (2.5-16.5); LYMPHOCYTES % (AUTO) 5.1 % (20.5-51.1); MEAN CORPUSCULAR HEMOGLOBIN 29 pg (27-31); MEAN CORPUSCULAR HGB CONC 33 g/dL (33-37); MEAN CORPUSCULAR VOLUME 87.1 fL (80-94); MONOCYTES # (AUTO) 0.6 K/uL (0.8-1.0); MONOCYTES % (AUTO) 6.4 % (1.7-9.3); NEUTROPHILS # (AUTO) 8.8 K/uL (1.8-7.7); NEUTROPHILS % (AUTO) 87.1 % (42.2-75.2); PLATELET COUNT (AUTO) 196 K/uL (140-450); RED CELL DISTRIBUTION WIDTH 12.8 % (11.6-13.7); WHITE BLOOD COUNT (AUTO) 10.2 K/uL (4.8-10.8)
--- NOTE | 2020-06-01 07:30 | NUR ---
RECEIVED BEDSIDE ENDORSEMENT FROM NIGHTSMTFT NURSE FOR CONTINUITY OF CARE.
[2020-06-01 07:47] LABS: MAGNESIUM 1.8 mg/dL (1.8-2.4); PHOSPHORUS 2.6 mg/dL (2.5-4.9)
[2020-06-01 07:56] LABS: ANION GAP 10.2 (8-16); CARBON DIOXIDE 25.6 mmol/L (21-32); CREATININE 0.5 mg/dL (0.6-1.3); POTASSIUM 3.8 mmol/L (3.5-5.1)
[2020-06-01] MEDS: HYDROcodone/APAP 7.5/325 MG 1 TAB PO PRN ×2 (10:08→21:42)
--- NOTE | 2020-06-01 10:12 | NUR ---
ADMINISTERED PRN MEDICATION FOR 6/10 PAIN PRESCRIBED BY MD. PATIENT TOLERATED WELL. MEDICATION EDUCATION PROVIDED. PATIENT VERBALIZED UNDERSTANDING. SAFETY MEASURES IN PLACE. WILL CONTINUE TO MONITOR.
[2020-06-01 12:00] VITALS: BP 118/76
--- NOTE | 2020-06-01 12:24 | NUR ---
BG CHECK PERFORMED, 85: NO INSULIN COVERAGE NEEDED. PATIENT RESTING IN BED, DENIES PAIN. VISIBLE RISE AND FALL OF CHEST, RESPIRATIONS EVEN AND UNLABORED. NO SIGNS OF DISTRESS. SAFETY MEASURES IN PLACE. WILL CONT TO MONITOR.
--- NOTE | 2020-06-01 14:02 | NUR ---
HOURLY ROUNDING PERFORMED. PATIENT AMBULATED TO BATHROOM. DENIES PAIN. FIELD STAFF STANDBY ASSIST. SAFETY MEASURES IN PLACE. WILL CONT TO MONITOR.
--- NOTE | 2020-06-01 17:40 | NUR ---
WOUND CARE PERFORMED. PATIENT ABD PAD DRY SEROSANGUIN DISCHARGE ON GAUZE. REMOVED, CLEANED SURROUNDING AREA W/ STERILE WATER, PAT DRY, PLACED CLEAN ABD PAD. PATIENT VERTICAL INCISION HAS 22 TIFFANIE AND 2 TIFFANIE TO THE RIGHT OF INCISION FOR A TOTAL OF 24 TIFFANIE. NO DISCHARGE DURING CLEANING, PATIENT PAIN 5 STATES IS MANAGABLE. PICTURES TAKEN AND PLACED IN CHART. SAFETY MEASURES IN PLACE. WILL CONT TO MONITOR.
--- NOTE | 2020-06-01 19:27 | NUR ---
GAVE BEDSIDE ENDORSEMENT TO NIGHTSHIFT NURSE FOR CONTINUITY OF CARE
[2020-06-01 20:00] VITALS: BP 121/71
[2020-06-01] MEDS: AMINO ACIDS IV SCH ×4 (20:00)
[2020-06-01] MEDS: [UNRECOGNIZED DRUG - OTHER] IV SCH ×4 (20:00)
[2020-06-01] MEDS: MULTIVITAMIN IV SCH ×4 (20:00)
[2020-06-01] MEDS: DEXTROSE IV SCH ×4 (20:00)
[2020-06-01] MEDS: AMITRIPTYLINE 10 MG TAB PO SCH (21:00)
[2020-06-02] VITALS: BP 113/74
[2020-06-02 04:00] VITALS: BP 118/72
[2020-06-02 06:56] LABS: BASOPHILS % (AUTO) 0.3 % (0.0-2.0); EOSINOPHILS # (AUTO) 0.3 K/uL (0-0.4); EOSINOPHILS % (AUTO) 3.2 % (0.0-4.0); HEMATOCRIT 28.1 % (36-48); HEMOGLOBIN 9.5 g/dL (12.0-16.0); LYMPHOCYTES # (AUTO) 0.6 K/uL (2.5-16.5); MEAN CORPUSCULAR HEMOGLOBIN 29 pg (27-31); MEAN CORPUSCULAR HGB CONC 34 g/dL (33-37); MEAN CORPUSCULAR VOLUME 86.3 fL (80-94); MONOCYTES # (AUTO) 0.7 K/uL (0.8-1.0); NEUTROPHILS # (AUTO) 7.8 K/uL (1.8-7.7); NEUTROPHILS % (AUTO) 83.5 % (42.2-75.2); PLATELET COUNT (AUTO) 225 K/uL (140-450); RED BLOOD CELL COUNT(AUTO) 3.25 MIL/uL (4.20-5.40); RED CELL DISTRIBUTION WIDTH 13.1 % (11.6-13.7); WHITE BLOOD COUNT (AUTO) 9.4 K/uL (4.8-10.8)
[2020-06-02 07:25] LABS: ANION GAP 10.5 (8-16); CARBON DIOXIDE 28.1 mmol/L (21-32); CREATININE 0.6 mg/dL (0.6-1.3); MAGNESIUM 1.5 mg/dL (1.8-2.4); PHOSPHORUS 3.2 mg/dL (2.5-4.9); POTASSIUM 3.6 mmol/L (3.5-5.1)
--- NOTE | 2020-06-02 07:25 | NUR ---
RECEIVED PT FROM ATTENDANT COIN OPERATED LAUNDRY NURSE, PT IS RESTING IN BED, ON ROOM AIR, IV NOTED TO RFA 20 WITH LR 40ML/HR, IV NTO LAC 18G SALINE LOCK, VITO PICC LINE SALINE LOCK, COLOSTOMY BAG TO LUQ, SAFETY AND FALL PRECAUTIONS IN PLACE, WILL CONTINUE TO MONITOR.
[2020-06-02] MEDS: HYDROmorphone 1 MG/ML AMP IVP PRN (10:01)
[2020-06-02] MEDS: ACETAMINOPHEN 325 MG TAB PO PRN (10:09)
--- NOTE | 2020-06-02 10:13 | NUR ---
TYLENOL ADMINISTERED FOR PAIN TO LOWER BACK 5/10, EDUCATION PROVED, WILL CONTINUE TO MONITOR.
[2020-06-02] MEDS ORDERED: FERR325E14 PO (11:11)
[2020-06-02] MEDS ORDERED: ELA10 PO (11:11)
[2020-06-02] MEDS ORDERED: ACET-5629 PO (11:11)
--- NOTE | 2020-06-02 11:30 | NUR ---
WOUND CARE EVALUATION NOTE: WOUND CARE DONE WITH THIS 50 Y/O FEMALE STATUS POST LAPAROSCOPIC CONVERTED TO OPEN DIVERTING COLOSTOMY AND MEDIPORT PLACEMENT. PT IS AAX4. ABDOMINAL WOUND CARE AND OSTOMY CARE INSTRUCTIONS EXPLAINED AND DEMONSTRATED TO PT WITH PICTURE GUIDELINE PROVIDES. PT. VERBALIZES UNDERSTANDING. POC DISCUSSED WITH PT. AND PRIMARY RN. PRIMARY RN MICA TRANSLATE IN [place]. PT. DOES UNDERSTAND SOME INDONESIAN. POC DISCUSSES WITH PROFESSIONAL HEALTHCARE REPRESENTATIVE AND DR. MORENO. INTEGUMENTARY: -LEFT UPPER CHEST MEDIPORT STERILE STRIPS IN PLACE, DRY AND CLEAN -RLQ ABD. SURGICAL WOUND, [address]A DRY AND CLEAN. MID ABDOMINAL SURGICAL WOUNDS [address], CLEAN AND DRY , NO S/S OF WOUND DEHISCENCE -LLQ ABD COLOSTOMY, PAM STOMA SKIN CLEAN AND INTACT, STOMA MOIST, BEEFY RED, ROUND SHAPE 7/8 (22MM), LUMEN OPENING TO 6 OCLOCK, FUNCTIONING WITH SMALL AMOUNT DARK BROWN STOOL OUTPUT RECOMMENDATIONS: PRIMARY RN CONTINUE TEACHING WOUND CARE AND COLOSTOMY CARE. -FOLLOW UP WITH SURGEON IN 7-10 DAYS UPON DISCHARGE -CLEANSE RLQ ABD AND MID ABD WOUND WITH NS. PAT DRY QD AND PRN IF SOILING, MAY MYKEL -COLOSTOMY CARE PER PROTOCOL AND DURING OSTOMY CARE PLEASE FOLLOW INSTRUCTION BELOW: -CHECK PAM STOMA SKIN CONDITION EVERY TIME WAFER CHANGED Q 5 DAYS AND PRN IF DISPLACED -APPLY SKIN PREP TO PAM-OSTOMY SKIN -APPLY STOMA ADHESIVE PAST TO THE WAFER, NEAR THE EDGE OF STOMA SKIN AREA, PAT FLAT. APPLY SKIN PREP TO PAM-STOMA SKIN - USE 2- PIECES SALAZAR OSTOMY DEVICES WITH 7/8 (22MM), FLEX TO FIT THE STOMA EXACTLY. NO SKIN SHOWING. APPLY PRE-SHAPE WAFER TO OSTOMY AND ATTACHED POUCH TO WAFER. CHANGE WAFER Q5 DAYS. -EMPTY AND RINSE POUCH WHEN IT IS 1/2 FULL. CHANGE POUCH Q5 DAYS AND PRN IF LEAK -UPON DISCHARGE, MAY DISCHARGE HOME WITH SULLPIES FOLLOWIN COMPLETE POUCH CHANGES 1 BOTTLE OF STOMA ADHESIVE POWDER 4 SKIN PREP
[2020-06-02 12:57] VITALS: BP 118/78
--- NOTE | 2020-06-02 14:23 | NUR ---
COLLABORATION WITH CASE MANAGEMENT TO DETERMINE WHEN SUPPLIES WOULD BE DELIVERED AND FOLLOW UP APPOINTMENTS WITH SURGEON AND ONCOLOGIST. WILL AWAIT RESPONSE. PT TO BE DISCHARGED AFTER RESOLUTION. WILL ADVISE PT.
--- NOTE | 2020-06-02 16:00 | NUR ---
PT DISCHARGED HOME WITH BY PRIVATE VEHICLE, ARMBANDS REMOVED, EDUCATION PROVIDED FOR FOLLOW UP APPOINTMENTS ON FRIDAY AND FRIDAY FOR ONCOLOGY AND SURGERY FOLLOW UP APPOINTMENTS, EDUCATION PROVIDED FOR OSTOMY CARE AND SUPPLIES GIVEN FOR OSTOMY BAG CHANGES, SCHWARZ REMOVED, IV'S REMOVED, NO PAIN WITH FIRST URINATION AFTER SCHWARZ REMOVAL, PT VERBALIZED UNDERSTANDING.
[2020-06-03] MEDS ORDERED: LACTULOSE 20 GM/30 ML UDC PO SCH (09:00)
== END 2020-06-02 18:15 | disposition home or self-care (01) | DRG 231 ==
LOC: MED 15:15 → MMU 17:32 → MTU 18:20
PROVIDERS: ADMIT Family Medicine; ATTEND Family Medicine
PROC: 0DBE8ZX Excision of Large Intestine, Via Natural or Artificial Opening Endoscopic, Diagnostic (ICD-10-PCS; 2020-05-29)
PROC: 0D1L0Z4 Bypass Transverse Colon to Cutaneous, Open Approach (ICD-10-PCS; principal; 2020-05-29 10:00)
PROC: 0DB68ZX Excision of Stomach, Via Natural or Artificial Opening Endoscopic, Diagnostic (ICD-10-PCS; 2020-05-29 10:00)
PROC: 02HV33Z Insertion of Infusion Device into Superior Vena Cava, Percutaneous Approach (ICD-10-PCS; 2020-05-30)
PROC: B548ZZA Ultrasonography of Superior Vena Cava, Guidance (ICD-10-PCS; 2020-05-30)
DX: K59.31 Toxic megacolon (principal); U07.1 COVID-19; R18.0 Malignant ascites; K29.70 Gastritis, unspecified, without bleeding; C16.9 Malignant neoplasm of stomach, unspecified; D25.9 Leiomyoma of uterus, unspecified; E86.0 Dehydration; E78.2 Mixed hyperlipidemia; Z53.31 Laparoscopic surgical procedure converted to open procedure; R74.01 Elevation of levels of liver transaminase levels; K56.41 Fecal impaction
CPT/HCPCS: 36415; 71045; 71260; 74018; 74022; 76830; 77003; 80048; 80053; 80305; 81001; 81025; 82150; 82378; 82948; 83036; 83605; 83690; 83735; 83880; 84100; 84436; 84439; 84443; 84479; 84484; 85025; 85610; 85730; 86301; 86304; 87040; 87081; 88305; 88312; 88313; 88342; 96365; 96368; 96375; 97110; 97116; 97161-GP; 97530; 99285; A4371; A9153; C1788; C9113; J1170; J1200; J1644; J1650; J1885; J2001; J2175; J2250; J2270; J2405; J2543; J2920; J3010; J3490; J7030; J7042; J7060; J7120; Q9967; U0003

== ENCOUNTER 2020-08-07 16:11 | Emergency (ER) | payer MEDICAID, SELFPAY ==
[~2020-08-07] VITALS: Ht 154.9 cm; Wt 39.0 kg
[~2020-08-07 16:11] MED LIST: ACET-5629 PO; AMIT10TA36 PO; FERR325E14 PO
[2020-08-07 16:16] VITALS: BP 105/73
--- NOTE | 2020-08-07 16:26 | NUR ---
Patient transferred to bed 10 via wheelchair by tech. RN is evaluating the patient at bedside.
--- NOTE | 2020-08-07 16:48 | NUR ---
50 YEAR OLD FEMALE STATES SHE CAME TO ER BECAUSE OF PCP REFERALL. PT STATES THAT SHE WAS REFERRED HERE IN ORDER TO HAVE A COLONOSCOPY. PT ALSO COMPLAINS OF SOME ABDOMINAL PAIN. PT AOX4, BREATHING EVEN AND UNLABORED, SKIN WARM AND DRY. BED IN LOWEST POSITION, LOCKED, BED RAIL UPX1. PMH - STOMACH CANCER ALLERGIES - NKA
[2020-08-07 16:53] LABS: BASOPHILS % (AUTO) 0.8 % (0.0-2.0); EOSINOPHILS # (AUTO) 0.1 K/uL (0-0.4); EOSINOPHILS % (AUTO) 3.1 % (0.0-4.0); HEMATOCRIT 35.2 % (36-48); HEMOGLOBIN 11.7 g/dL (12.0-16.0); LYMPHOCYTES # (AUTO) 1.1 K/uL (2.5-16.5); LYMPHOCYTES % (AUTO) 23.6 % (20.5-51.1); MEAN CORPUSCULAR HEMOGLOBIN 27 pg (27-31); MEAN CORPUSCULAR HGB CONC 33 g/dL (33-37); MEAN CORPUSCULAR VOLUME 82.7 fL (80-94); MONOCYTES # (AUTO) 0.3 K/uL (0.8-1.0); NEUTROPHILS # (AUTO) 3.2 K/uL (1.8-7.7); NEUTROPHILS % (AUTO) 66.5 % (42.2-75.2); PLATELET COUNT (AUTO) 233 K/uL (140-450); RED BLOOD CELL COUNT(AUTO) 4.26 MIL/uL (4.20-5.40); WHITE BLOOD COUNT (AUTO) 4.7 K/uL (4.8-10.8)
[2020-08-07 17:06] LABS: ALBUMIN 3.1 g/dL (3.4-5.0); ANION GAP 10.8 (8-16); CARBON DIOXIDE 27.6 mmol/L (21-32); CREATININE 0.7 mg/dL (0.6-1.3); POTASSIUM 3.4 mmol/L (3.5-5.1); TOTAL BILIRUBIN 0.5 mg/dL (0.0-1.0)
[2020-08-07] MEDS ORDERED: ONDANSETRON 4 MG/2 ML VIAL IVP ONE (17:10)
[2020-08-07] MEDS ORDERED: MORPHINE SULFATE 4 MG/ML SYR IVP ONE (17:10)
[2020-08-07 17:16] LABS: APPEARANCE,URINE HAZY (CLEAR); BILIRUBIN,URINE NEGATIVE (NEGATIVE); BLOOD, URINE NEGATIVE (NEGATIVE); COLOR,URINE YELLOW (YELLOW); LEUKOCYTE ESTERASE ,URINE NEGATIVE (NEGATIVE); NITRITE, URINE NEGATIVE (NEGATIVE); PH,URINE 7.5 (5.0-9.0); UGLUCOSE NEGATIVE (NEGATIVE)
[2020-08-07] MEDS ORDERED: ONDA4ODT2 PO (18:27)
[2020-08-07] MEDS ORDERED: DEC4 PO (18:27)
[2020-08-07] MEDS ORDERED: FAMO-90 PO (18:27)
--- NOTE | 2020-08-07 19:11 | NUR ---
REPORT GIVEN TO MOJGAN AGUILAR AND PASCALE RN, TRANSFER OF CARE AT THIS TIME
--- NOTE | 2020-08-07 19:11 | NUR ---
REPORT RECIEVED FROM LAUREN PETERSON FOR CHANGE OF SHIFT.
--- NOTE | 2020-08-07 19:20 | NUR ---
JOSE SWAB COLLECTED VIA NARES WITHOUT DIFFICULTY.
--- NOTE | 2020-08-07 19:47 | NUR ---
RECEIVED CALL FROM LAB, PATIENT'S JOSE COVID TEST IS POSITIVE.
--- NOTE | 2020-08-07 20:22 | NUR ---
PATIENT BEING TAKEN TO CT VIA W.C.
--- NOTE | 2020-08-07 20:38 | NUR ---
PATIENT RETURNED FROM CT VIA W.C.
[2020-08-07] MEDS ORDERED: ONDANSETRON 4 MG ODT PO ONE (22:00)
[2020-08-07] MEDS ORDERED: HYDROcodone/APAP 5/325 MG 1 TAB TAB PO ONE (22:00)
[2020-08-07] MEDS ORDERED: ACET-5629 PO (22:09)
[2020-08-07] MEDS ORDERED: ONDA4TAB PO (22:09)
[2020-08-07] MEDS ORDERED: MIRABULK PO (22:10)
[2020-08-07 22:18] VITALS: BP 111/76
--- NOTE | 2020-08-07 22:20 | NUR ---
Patient discharged with v/s stable. Written and verbal after care instructions given and explained. Patient alert, oriented and verbalized understanding of instructions. Ambulatory with steady gait. All questions addressed prior to discharge. ID band removed. Patient advised to follow up with PMD. Rx of PERCOCET, MIRALAX, ZOFRAN given. Patient educated on indication of medication including possible reaction and side effects. Opportunity to ask questions provided and answered.
== END 2020-08-07 22:18 | disposition home or self-care (01) ==
LOC: MED 16:11
DX: U07.1 COVID-19 (principal); R18.8 Other ascites; R10.9 Unspecified abdominal pain
CPT/HCPCS: 36415; 74177; 80053; 81003; 83690; 85025; 87426; 96374; 96375; 99285; J2270; J2405; Q9967

== ENCOUNTER 2020-08-15 09:05 | Inpatient (IN) | payer MEDICAID, SELFPAY ==
[~2020-08-15] VITALS: Ht 154.9 cm; Wt 43.5 kg
[~2020-08-15 09:05] MED LIST changes: -AMIT10TA36 PO; +DEC4 PO; +FAMO-90 PO; -FERR325E14 PO; +MIRABULK PO; +ONDA4ODT2 PO; +ONDA4TAB PO
[2020-08-15 09:12] VITALS: BP 120/82
--- NOTE | 2020-08-15 09:13 | NUR ---
pt wheeled to bed 7.
--- NOTE | 2020-08-15 09:14 | NUR ---
50Y F c/c Dr. Bernstein refferal to be admitted to [facility]/Surg d/t fluid retention in stomach r/t stage 4 stomach cancer (May 2020), pt reports 10/10 stabbing pain throughout stomach but denies n/v/d. No edema noted pt denies SOB, chest pain. PMH: Stage 4 Stomach cancer (May 2020) BLAS
--- NOTE | 2020-08-15 09:45 | NUR ---
EMT with EKG at bedside
--- NOTE | 2020-08-15 09:48 | NUR ---
DR COREY AT BEDSIDE EXAMINING PATIENT
[2020-08-15 09:58] LABS: BASOPHILS % (AUTO) 0.6 % (0.0-2.0); EOSINOPHILS % (AUTO) 0.5 % (0.0-4.0); HEMATOCRIT 34.6 % (36-48); HEMOGLOBIN 11.5 g/dL (12.0-16.0); LYMPHOCYTES # (AUTO) 0.6 K/uL (2.5-16.5); LYMPHOCYTES % (AUTO) 11.5 % (20.5-51.1); MEAN CORPUSCULAR HEMOGLOBIN 28 pg (27-31); MEAN CORPUSCULAR HGB CONC 33 g/dL (33-37); MEAN CORPUSCULAR VOLUME 82.6 fL (80-94); MONOCYTES # (AUTO) 0.4 K/uL (0.8-1.0); MONOCYTES % (AUTO) 8.4 % (1.7-9.3); NEUTROPHILS # (AUTO) 4.1 K/uL (1.8-7.7); PLATELET COUNT (AUTO) 340 K/uL (140-450); RED BLOOD CELL COUNT(AUTO) 4.19 MIL/uL (4.20-5.40); RED CELL DISTRIBUTION WIDTH 15.9 % (11.6-13.7); WHITE BLOOD COUNT (AUTO) 5.1 K/uL (4.8-10.8)
[2020-08-15 10:02] LABS: APPEARANCE,URINE CLEAR (CLEAR); BILIRUBIN,URINE NEGATIVE (NEGATIVE); BLOOD, URINE NEGATIVE (NEGATIVE); COLOR,URINE YELLOW (YELLOW); LEUKOCYTE ESTERASE ,URINE NEGATIVE (NEGATIVE); NITRITE, URINE NEGATIVE (NEGATIVE); UGLUCOSE NEGATIVE (NEGATIVE)
[2020-08-15 10:07] LABS: PROTHROMBIN TIME 9.1 secs (10.8-13.4)
[2020-08-15 10:08] LABS: ALBUMIN 2.6 g/dL (3.4-5.0); ANION GAP 11.2 (8-16); CARBON DIOXIDE 28.1 mmol/L (21-32); CREATININE 0.7 mg/dL (0.6-1.3); POTASSIUM 3.3 mmol/L (3.5-5.1); TOTAL BILIRUBIN 0.5 mg/dL (0.0-1.0)
[2020-08-15] MEDS ORDERED: MORPHINE SULFATE 2 MG/ML SYR IVP ONE (10:15)
[2020-08-15] MEDS ORDERED: ONDANSETRON 4 MG/2 ML VIAL IVP ONE (10:15)
--- NOTE | 2020-08-15 10:58 | NUR ---
Pt resting in bed eyes closed, visible equal rise and fall of chest. VSS, will continue to monitor.
[2020-08-15] MEDS ORDERED: POTASSIUM CHLORIDE 10 MEQ TABER PO PRN (11:15)
[2020-08-15] MEDS ORDERED: guaiFENesin DM 200/20 MG-10 ML 10 ML UDC PO PRN (11:15)
[2020-08-15] MEDS ORDERED: MORPHINE SULFATE 2 MG/ML SYR IVP PRN ×2 (11:15→20:30)
[2020-08-15] MEDS ORDERED: DEXT 5% /NACL 0.9% 1,000 ML IV SCH (11:15)
[2020-08-15] MEDS ORDERED: ONDANSETRON 4 MG/2 ML VIAL IM/IVP PRN (11:15)
[2020-08-15] MEDS ORDERED: HYDROcodone/APAP 7.5/325 MG 1 TAB PO PRN (11:15)
[2020-08-15] MEDS ORDERED: DOCUSATE SODIUM 100 MG GELCAP PO PRN (11:15)
[2020-08-15] MEDS ORDERED: ZOLPIDEM 5 MG TAB PO PRN (11:15)
[2020-08-15] MEDS ORDERED: ACETAMINOPHEN 325 MG TAB PO PRN (11:15)
--- NOTE | 2020-08-15 11:30 | NUR ---
Gave report to LAUREN Angel for pending admission 118 med surg. ETA 10min.
--- NOTE | 2020-08-15 11:33 | NUR ---
RECEIVED REPORT FROM ER NURSE ALICE REGARDING THE PT NOW.
[2020-08-15 11:45] VITALS: BP 109/78
--- NOTE | 2020-08-15 11:45 | NUR ---
RECEIVED PT VIA WHEELCHAIR, FROM ER NURSE, ALICE, PT IS AOX4, ON RA, AMBULATED TO THE BED WITH IV LINE NOTED ON THE LEFT AC G. 20 WITH D5 NS INFUSING, PT HAS GENERALIZED WEAKNESS, BUT DENIES PAIN, ON CHEMOTHERAPY, FALL AND SAFETY PRECAUTIONS IN PLACE, RAPID POSITIVE, ON ISOLATION AND NO SIGN OF DISTRESS NOTED. WILL CONTINUE TO BE MONITORED.
--- NOTE | 2020-08-15 11:48 | NUR ---
Patient will be admitted to care of Dr. Wilks. Admited to MED SURG. Will go to room 118. Belongings list completed. Report to LAUREN Angel.
[2020-08-15 12:00] LABS: FREE T4 (FREE THYROXINE) 0.99 ng/dL (0.76-1.46); PHOSPHORUS 4.4 mg/dL (2.5-4.9); THYROID STIMULATING HORMONE 5.48 uIU/mL (0.34-3.74)
--- NOTE | 2020-08-15 12:10 | NUR ---
MRSA SWAB DONE TO PT AND SAMPLE WAS SENT TO LAB.
[2020-08-15] MEDS: PIPERACILLIN/TAZOBACTAM 3.375 GM in DEXTROSE 5% 50 ML IV SCH ×2 (12:47→21:10)
--- NOTE | 2020-08-15 12:47 | NUR ---
PT WAS GIVEN IVPB ZOSYN NOW, WILL MONITOR PT.
--- NOTE | 2020-08-15 13:13 | NUR ---
DC PLANNIN YRS OLD FEMALE PATIENT WAS ADMITTED FROM HOME WITH A DX OF ASCITES , GASTRIC CA. PT HAS A HX OF GASTRIC CANCER WITH COLOSTOMY BAG , GERD . CT CHEST/ABD/PELVIS SHOWED MASS IN THE PELVIS SUSPICIOUS FOR METASTASIS OF GASTRIC CA. RAPID COVID TEST POSITIVE, PCR IS PENDING. ADMINISTERED IVF, IV ABX ZOSYN CONSULTED WITH SURGEON, GI AND ID. DC PLAN TO GO HOME WHEN STABLE CM TO FOLLOW.
[2020-08-15 13:14] LABS: BARBITURATE, URINE NEGATIVE ng/ml (NEG <=200); BENZODIAZEPINE, URINE NEGATIVE ng/mL (NEG <=200); CANNABINOID, URINE NEGATIVE ng/mL (NEG <=50); COCAINE, URINE NEGATIVE ng/mL (NEG <=300); OPIATE, URINE NEGATIVE ng/mL (NEG <=2000); PHENCYCLIDINE SCREEN,URINE NEGATIVE ng/mL (NEG <=25)
--- NOTE | 2020-08-15 14:41 | NUR ---
PT IS OFF THE UNIT NOW FOR A CT CHEST/ABDOMEN/PELVIS WITH OR WITHOUT CONTRAST.
[2020-08-15 16:00] VITALS: BP 125/84
--- NOTE | 2020-08-15 16:57 | NUR ---
DR. MORENO CALLED AND MADE A TELEPHONE ORDER TO PLACE AN ORDER TO OBTAIN CONSENT FOR A PLACEMENT TUNNELLED ABDOMINAL CATHETER.
[2020-08-15] MEDS ORDERED: POTASSIUM CHLORIDE 40 MEQ, LIDOCAINE MPF 1% 25 MG in NACL 0.9% 250 ML IV PRN (17:10)
--- NOTE | 2020-08-15 17:11 | NUR ---
PATIENT HAS BEEN SCREENED AND CATEGORIZED MODERATE NUTRITION RISK. PATIENT WILL BE SEEN WITHIN 3-5 DAYS OF ADMISSION. 08/17/20 08/19/[address]
--- NOTE | 2020-08-15 17:44 | NUR ---
PT WAS GIVEN K RIDER 40MEQ FOR K LEVEL OF 3.3, WILL MONITOR PT.
[2020-08-15] MEDS ORDERED: LIDOCAINE MPF 1% 5 ML ONE (18:39)
[2020-08-15] MEDS ORDERED: BUPIVACAINE-MPF/EPI 0.25% 10 ML VIAL INJ ONE (18:39)
[2020-08-15] MEDS ORDERED: MIDAZOLAM 2 MG/2 ML VIAL ONE (19:25)
[2020-08-15] MEDS ORDERED: fentaNYL citrate 0.05 MG/ML VIAL ONE (19:25)
--- NOTE | 2020-08-15 19:27 | NUR ---
[facility] TO [facility]SE[facility]HUDA FOR CONTINUITY OF CARE.
--- NOTE | 2020-08-15 19:29 | NUR ---
RECEIVED BEDSIDE REPORT FROM DAY RN. PT IS ISRAELI SPEAKING ONLY. AAOX4. RESPIRATIONS ARE EQUAL AND UNLABORED ON RA. LUNG SOUNDS CLEAR DENIES COUGH. ON DROPLET ISO JOSE POSITIVE PCR PENDING. HX GASTRIC CA. DX ASCITES AND GASTRIC CA. ABD IS LARGE AND DISTENDED. COLOSTOMY NOTED ON LLQ. L CHEST PORT NOTED FOR CHEMO PER PT HAS CHEMO TOMORROW AT 11 AM OUT PATIENT. PT IS NPO WILL HAVE ABD TUNNELED CATH PLACEMENT TONIGHT WITH DR MORENO OR NURSE AT BEDSIDE TO TRANSFER PT.IC ON LAC 20G IVF PER ORDERS. SKIN INTACT. POC DISCUSSED WITH PT. WILL CONTINUE TO MONITOR.
[2020-08-15] MEDS ORDERED: ONDANSETRON 4 MG/2 ML VIAL IVP PRN (20:05)
[2020-08-15] MEDS: LACTATED RINGERS 1,000 ML IV SCH (20:05)
[2020-08-15] MEDS ORDERED: diphenhydrAMINE 50 MG/ML VIAL IVP PRN (20:05)
[2020-08-15] MEDS ORDERED: MORPHINE SULFATE 4 MG/ML SYR IV PRN (20:30)
[2020-08-15 20:55] VITALS: BP 115/80
--- NOTE | 2020-08-15 20:57 | NUR ---
PATIENT IS BACK FROM OR WITH INTR ABD TUNNEL CATH IN LLQ CLAMP. PER OR DR MORENO REMOVED 4L ASCITES. ABD IS SOFT AND FLAT. DENIES PAIN. NEW ORDER FOR D/C BY DR MORENO. WILL F/U WITH ADMITTING MD.
--- NOTE | 2020-08-15 21:10 | NUR ---
VSS. GAVE PT JELLO AND JUICE. ELEAZAR MEDICATION GIVEN PER ORDERS. RECEIVED PAGED BACK FROM DR ROWLAND PT WILL STAY TONIGHT POSSIBLE D/C IN THE MORNING. PT VERBALIZED UNDERSTANDING AND AGREED WITH POC.
--- NOTE | 2020-08-15 22:18 | NUR ---
ROUNDS MADE. PT TOLERATED SNACK WELL NO N/V. VSS. ALL NEEDS MET. CALL LIGHT IS WITHIN REACH.
--- NOTE | 2020-08-16 | NUR ---
ROUNDS MADE. PT OBSERVED LAYING IN BED APPEARS TO BE ASLEEP. CHEST RISE AND FALL NOTED. ALL NEEDS MET. CALL LIGHT IS WITHIN REACH.
--- NOTE | 2020-08-16 02:01 | NUR ---
ROUNDS MADE. PT APPEARS TO BE ASLEEP. CHEST RISE AND FALL NOTED. CALL LIGHT IS WITHIN REACH.
[2020-08-16 04:00] VITALS: BP 99/71
--- NOTE | 2020-08-16 04:00 | NUR ---
VITAL SIGNS ARE WITHIN NORMAL LIMITS. ALL SAFETY MEASURES ARE IN PLACE. WILL CONTINUE TO MONITOR.
[2020-08-16] MEDS: PIPERACILLIN/TAZOBACTAM 3.375 GM in DEXTROSE 5% 50 ML IV SCH (04:07)
[2020-08-16] MEDS: LACTATED RINGERS 1,000 ML IV SCH (04:08)
[2020-08-16 06:33] LABS: ANION GAP 8.2 (8-16); CARBON DIOXIDE 27.8 mmol/L (21-32); CREATININE 0.8 mg/dL (0.6-1.3)
[2020-08-16 06:34] LABS: BASOPHILS % (AUTO) 0.9 % (0.0-2.0); EOSINOPHILS # (AUTO) 0.1 K/uL (0-0.4); EOSINOPHILS % (AUTO) 1.8 % (0.0-4.0); HEMATOCRIT 30.9 % (36-48); HEMOGLOBIN 10.2 g/dL (12.0-16.0); LYMPHOCYTES # (AUTO) 0.6 K/uL (2.5-16.5); LYMPHOCYTES % (AUTO) 17.9 % (20.5-51.1); MEAN CORPUSCULAR HEMOGLOBIN 27 pg (27-31); MEAN CORPUSCULAR HGB CONC 33 g/dL (33-37); MEAN CORPUSCULAR VOLUME 82.5 fL (80-94); MONOCYTES # (AUTO) 0.4 K/uL (0.8-1.0); MONOCYTES % (AUTO) 12.9 % (1.7-9.3); NEUTROPHILS # (AUTO) 2.1 K/uL (1.8-7.7); NEUTROPHILS % (AUTO) 66.5 % (42.2-75.2); PLATELET COUNT (AUTO) 313 K/uL (140-450); RED BLOOD CELL COUNT(AUTO) 3.74 MIL/uL (4.20-5.40); RED CELL DISTRIBUTION WIDTH 16.5 % (11.6-13.7); WHITE BLOOD COUNT (AUTO) 3.2 K/uL (4.8-10.8)
--- NOTE | 2020-08-16 07:20 | NUR ---
REC';D REPORT FROM PHLEBOTOMY TECH NURSE, PT A/Ox4, RA. L. AC 20G PATENT, CLEAN. ABDOMEN SLIGHTLY DISTENDED, HAS COLOSTOMY IN PLACE, NO OUTPUT IN BAD, HAS L. SIDE TUNNELLED CATHETER, CLAMPED, PT STATES CAUSES MILD DISCOMFORT. CALL LIGHT WITHIN REACH. NO SIGN OF DISTRESS. WILL CONTINUE TO MONITOR
--- NOTE | 2020-08-16 07:26 | NUR ---
GAVE BEDSIDE REPORT TO DAY RN. PT ENDORSED IN STABLE CONDITION.
[2020-08-16 08:00] VITALS: BP 103/74
[2020-08-16] MEDS ORDERED: PANTOPRAZOLE 40 MG TABEC PO SCH (09:00)
[2020-08-16] MEDS ORDERED: ACET-9527 PO (09:20)
--- NOTE | 2020-08-16 09:57 | NUR ---
SPOKE TO TEZ WHALEY TO DISCHARGE PER DR. MORENO. STEVIE
[2020-08-16 09:58] VITALS: BP 103/74
--- NOTE | 2020-08-16 10:35 | NUR ---
PT DISCHARGED VIA WHEELCHAIR IN STABLE CONDITION. MEDICATION DISCUSSED WITH PATIENT, PT TO CONTACT DR. MORENO FOR APPOINTMENT ON 08/28, SEE PCP WITHIN 3-5 BUSINESS DAYS, INTRAABDOMINAL CATHETER CARE DISCUSSED WITH PT WHO VERBALIZED UNDERSTANDING, ID BAND REMOVED, IV CATHETER REMOVED,INTACT. PT TOLERATED PROCEDURE WELL. DISCHARGE PACKET AND INSTRUCTIONS GIVEN TO PT.
== END 2020-08-16 10:35 | disposition home or self-care (01) | DRG 240 ==
LOC: MED 09:05 → MTU 11:11
PROVIDERS: ADMIT Family Medicine; ATTEND Family Medicine
PROC: 0W9B30Z Drainage of Left Pleural Cavity with Drainage Device, Percutaneous Approach (ICD-10-PCS; principal; 2020-08-15 18:30)
DX: C16.9 Malignant neoplasm of stomach, unspecified (principal); E43 Unspecified severe protein-calorie malnutrition; R18.0 Malignant ascites; K65.2 Spontaneous bacterial peritonitis; J90 Pleural effusion, not elsewhere classified; K56.609 Unspecified intestinal obstruction, unspecified as to partial versus complete obstruction; C78.6 Secondary malignant neoplasm of retroperitoneum and peritoneum; D63.8 Anemia in other chronic diseases classified elsewhere; E86.0 Dehydration; E87.6 Hypokalemia; K31.89 Other diseases of stomach and duodenum; G89.29 Other chronic pain; Z20.822 Contact with and (suspected) exposure to COVID-19; K21.9 Gastro-esophageal reflux disease without esophagitis; Z68.1 Body mass index [BMI] 19.9 or less, adult; Z93.3 Colostomy status; Z79.899 Other long term (current) drug therapy
CPT/HCPCS: 36415; 71045; 71270; 75989; 76705; 80048; 80053; 80305; 81003; 82150; 83036; 83690; 83735; 83880; 84100; 84436; 84439; 84443; 84479; 84484; 85025; 85610; 85730; 87081; 93005; 96374; 96375; 99285; J1644; J2001; J2250; J2270; J2405; J2543; J3010; J3480; J3490; J7030; J7042; J7060; J7120; Q9967; U0003

== ENCOUNTER 2020-08-18 15:57 | Emergency (ER) | payer MEDICAID, SELFPAY ==
[~2020-08-18] VITALS: Ht 154.9 cm; Wt 43.5 kg
[~2020-08-18 15:57] MED LIST changes: -ACET-5629 PO; +ACET-9527 PO; -ONDA4ODT2 PO
[2020-08-18 16:19] VITALS: BP 114/67
--- NOTE | 2020-08-18 16:20 | NUR ---
Patient assisted via wheelchair to bed 01 with steady/even gait, accompanied by .
--- NOTE | 2020-08-18 16:55 | NUR ---
Dr. Vines is evaluating patient at bedside.
--- NOTE | 2020-08-18 17:13 | NUR ---
50 y/o F coming in from home with c/c abdominal pain. Patient presents at bedside and states she was admitted here on 08/07/20 for fluid retention and discharged with drainage tube. states she received her last chemotherapy treatment today and was advised by her nurse to go to the ER for further evaluation of abdominal/ lower pelvic swelling. Patient's states pain 3/10, pinching/intermittent, non-radiating pain to her LLQ, suprapubic region. Pt states worsening pain upon standing up, and relief when laying down. Patient states Dr. Robert Khan as doctor and Oncologist from [facility] Dr. Ezekiel Donaldson. Pt denies N/V/D, SOB, chest pain, back pain, urinary symptoms, bloody stool/urine. States last bowel movement at 1330 on 08/18/20. Pt placed onto lunchroom monitor. Respirations even/unlabored. Bed locked in lowest position, side rails x 1, call light in reach. PMH: Stomach cancer, Drain tube placement, colostomy bag, HEPATITIS, PANCREATITIS, CHOLECUSTITIS, PEPTIC ULCER Meds: NKA
[2020-08-18] MEDS ORDERED: HYDROmorphone PFS 2 MG/ML SYR IVP ONE (17:15)
--- NOTE | 2020-08-18 17:15 | NUR ---
Lab at bedside. IV initiated; blood sample collected and given to yves Duval tech.
--- NOTE | 2020-08-18 17:30 | NUR ---
Patient resting in position of comfort. at bedside. general science teacher remains in place. Respirations even/unlabored. Bed locked in lowest position, side rails x 1, call light in reach.
[2020-08-18 17:45] LABS: BASOPHILS % (AUTO) 0.2 % (0.0-2.0); EOSINOPHILS % (AUTO) 0.1 % (0.0-4.0); HEMATOCRIT 31.6 % (36-48); HEMOGLOBIN 10.5 g/dL (12.0-16.0); LYMPHOCYTES # (AUTO) 0.3 K/uL (2.5-16.5); LYMPHOCYTES % (AUTO) 6.8 % (20.5-51.1); MEAN CORPUSCULAR HEMOGLOBIN 28 pg (27-31); MEAN CORPUSCULAR HGB CONC 33 g/dL (33-37); MEAN CORPUSCULAR VOLUME 83.3 fL (80-94); MONOCYTES # (AUTO) 0.1 K/uL (0.8-1.0); MONOCYTES % (AUTO) 2.5 % (1.7-9.3); NEUTROPHILS # (AUTO) 3.5 K/uL (1.8-7.7); NEUTROPHILS % (AUTO) 90.4 % (42.2-75.2); PLATELET COUNT (AUTO) 353 K/uL (140-450); WHITE BLOOD COUNT (AUTO) 3.9 K/uL (4.8-10.8)
--- NOTE | 2020-08-18 17:50 | NUR ---
Patient assisted with to restroom with steady/even gait. 1200 mL clear/cain fluids removed from drain tubing. and patient taught and re-demonstrated technique to perform drain at home.
[2020-08-18 18:09] LABS: ALBUMIN 2.5 g/dL (3.4-5.0); ANION GAP 7.1 (8-16); CARBON DIOXIDE 29.9 mmol/L (21-32); CREATININE 0.7 mg/dL (0.6-1.3); TOTAL BILIRUBIN 0.3 mg/dL (0.0-1.0)
--- NOTE | 2020-08-18 18:10 | NUR ---
Signature obtained for CT with contrast. witness.
--- NOTE | 2020-08-18 18:13 | NUR ---
veterinary technology instructor contacted via telephone, advised that 20G established to left AC and consent signed. CT states that she has another patient to perform CT on prior to patient. ETA 20 minutes.
--- NOTE | 2020-08-18 18:23 | NUR ---
Dr. Donaldson is evaluating patient at bedside.
--- NOTE | 2020-08-18 18:24 | NUR ---
Dr. Vines is evaluating patient at bedside.
--- NOTE | 2020-08-18 18:30 | NUR ---
Patient resting in position of comfort. at bedside. property claims manager remains in place. Respirations even/unlabored. Bed locked in lowest position, side rails x 1, call light in reach.
[2020-08-18 18:40] VITALS: BP 159/88
--- NOTE | 2020-08-18 18:40 | NUR ---
Patient discharged with v/s stable. Written and verbal after care instructions given and explained. Patient verbalized understanding. Ambulatory with steady gait. All questions addressed prior to discharge. Advised to follow up with PMD. assisted patient.
== END 2020-08-18 18:40 | disposition home or self-care (01) ==
LOC: MED 15:57
DX: G89.3 Neoplasm related pain (acute) (chronic) (principal); R18.8 Other ascites; Z85.028 Personal history of other malignant neoplasm of stomach; Z79.899 Other long term (current) drug therapy
CPT/HCPCS: 36415; 80053; 83605; 85025; 96374; 99283; J1170